=== PATIENT | female | born 1980 | race American Indian/Alaskan Native ===

== ENCOUNTER 2021-02-09 09:32 | Outpatient (CLI) | payer BC ==
--- NOTE | 2021-02-11 08:37 | Mammography Report ---
DIGITAL SCREENING MAMMOGRAM WITH TOMOSYNTHESIS WITH CAD, 02/09/2021 CLINICAL INFORMATION / INDICATION: Screening TECHNIQUE: Digital bilateral 2D and 3D mammography with tomosynthesis was obtained in the craniocaud al and mediolateral oblique projections. Computer-Aided Detection (CAD) analysis was used for interp retation of this study. COMPARISON: None available FINDINGS: Breast Density: The breasts are heterogeneously dense, which may obscure small masses. No dominant mass, suspicious calcifications, or architectural distortion in the left breast. In the posterior depth of the upper outer left breast at 2:00, approximately 8 cm from the nipple, an ill-defined 6 mm possible asymmetric focal density is seen. IMPRESSION: Possible asymmetric focal density on the left Follow up recommendation: Left spot compression views and ultrasound if needed BI-RADS Category 0: Incomplete. Needs additional imaging evaluation and/or prior mammograms for julian barlowon. A "normal" or negative report should not discourage follow up or biopsy of a clinically significant f inding. A written summary of these findings will be mailed to the patient. The patient will be entered into a mammography reporting system which will generate a reminder letter for the patient's next appointmen t at the appropriate interval. The [employer] recommends yearly mammograms starting at age 40 and continuing as l deniz as a woman is in good health. Breast MRI is recommended for women with an approximate 20-25% or greater lifetime risk of breast cancer, including women with a strong family history of breast or ova almaz cancer or who have been treated for Hodgkin's disease. Signer Name: Parth Madrid MD Signed: 02/11/2021 8:32 AM Workstation Name: [id number]
== END 2021-02-09 09:33 | disposition home or self-care (01) ==
LOC: SPVWC 09:32
PROVIDERS: ATTEND Surgery
DX: Z12.31 Encounter for screening mammogram for malignant neoplasm of breast (principal)
CPT/HCPCS: 77063; 77067

== ENCOUNTER 2021-03-16 08:13 | Outpatient (CLI) | payer BC ==
--- NOTE | 2021-03-16 16:39 | Mammography Report ---
LEFT DIGITAL DIAGNOSTIC MAMMOGRAM WITH CAD , 03/16/2021 LEFT LIMITED BREAST ULTRASOUND CLINICAL INFORMATION / INDICATION: ABN MAMMO TECHNIQUE: Digital left mammographic imaging was performed. Spot compression views were obtained. Graham ited ultrasound was performed. This examination was interpreted with the benefit of Computer-Aided De tection (CAD) analysis. COMPARISON: 02/09/2021 recent screening mammogram. FINDINGS: Breast Density: The breasts are heterogeneously dense, which may obscure small masses. MAMMOGRAPHIC FINDINGS: In the 1-2:00 position of the left breast, posterior depth, a persistent 7 mm round nodular density is seen, primarily on the MLO view. Ultrasound will be performed for further ev aluation. ULTRASOUND FINDINGS: Targeted ultrasound evaluation was performed of the area of interest. A 5 mm o loulou simple cyst is identified at 2:00, 8 cm from nipple. It is unclear if this correlates with mammog raphic abnormality. There is certainly no solid mass or suspicious area of shadowing noted. IMPRESSION: Probably benign finding. Recommend 6 month follow-up left 3D mammogram to assess stabili ty of highly likely benign nodular density. Follow up recommendation: Short term follow up in 6 months. BI-RADS Category 3: Probably Benign. Followup in 6 months. A "normal" or negative report should not discourage follow up or biopsy of a clinically significant f inding. A written summary of these findings will be mailed to the patient. The patient will be entered into a mammography reporting system which will generate a reminder letter for the patient's next appointmen t at the appropriate interval. According to the [employer], yearly mammograms are recommended starting at age 40 and continuing as long as a woman is in good health. Breast MRI is recommended for women with an ketty roximately 20-25% or greater lifetime risk of breast cancer, including women with a strong family his tory of breast or ovarian cancer and women who have been treated for Hodgkin's disease. Signer Name: Delia Acevedo MD Signed: 03/16/2021 4:35 PM Workstation Name: [id number]
== END 2021-03-16 08:14 | disposition home or self-care (01) ==
LOC: SPVWC 08:13
PROVIDERS: ATTEND Surgery
DX: N60.02 Solitary cyst of left breast (principal)

== ENCOUNTER 2021-04-19 15:27 | Outpatient (CLI) | payer BC ==
--- NOTE | 2021-04-26 09:00 | Magnetic Resonance Report ---
BILATERAL BREAST MRI WITH AND WITHOUT CONTRAST CLINICAL INFORMATION/INDICATION: The patient has a history of abnormal left mammogram which demonstra faye benign-appearing nodularity and left breast cyst. The patient also reports left breast pain. She also reports a family history of breast cancer. TECHNICAL: Axial T1 and T2-weighted fat sat images were obtained precontrast. After intravenous admin istration of 13 mL Clariscan, serial axial T1 weighted images with fat saturation were obtained. 3-D MIP projections, kinetic analysis and subtraction imaging was utilized to evaluate. A dedicated 8-clif nnel breast coil was used for image acquisition. COMPARISON: Bilateral screening mammogram, 02/09/2021. Left diagnostic mammogram and ultrasound, 2020 FINDINGS: There is mild to moderate background enhancement within both breasts. Right breast: No dominant mass or suspicious area of enhancement is seen in the right breast. Left breast: No dominant mass or suspicious area of enhancement is seen in the left breast. Specifica lly, no MRI abnormality is seen to correspond to the minimal benign-appearing nodularity at the 2:00 position recently identified on the patient's screening and diagnostic mammograms. Axilla: No pathologically enlarged axillary lymph nodes are identified. Additional findings: Limited imaging of the thorax and upper abdomen demonstrates no focal abnormalit y. IMPRESSION: 1. No MRI abnormality of either breast. 2. Findings seen on the recent diagnostic mammogram and ultrasound have the appearance of dense fibro glandular tissue and fibrocystic change. Therefore, a six-month follow-up left diagnostic mammogram w ith tomosynthesis and ultrasound is recommended to confirm this impression. Follow up recommendation: Short term follow up in 6 months. BI-RADS Category 3: Probably Benign. Followup in 6 months. Signer Name: Haritha Tracey MD Signed: 04/26/2021 8:55 AM Workstation Name: [id number]
== END 2021-04-19 15:28 | disposition home or self-care (01) ==
LOC: SPVIMAG 15:27
PROVIDERS: ATTEND Surgery
DX: Z12.31 Encounter for screening mammogram for malignant neoplasm of breast (principal); Z80.3 Family history of malignant neoplasm of breast
CPT/HCPCS: A9575; C8908; 77049

== ENCOUNTER 2021-05-03 15:24 | Outpatient (CLI) | payer BC ==
--- NOTE | 2021-05-03 20:06 | Magnetic Resonance Report ---
MR brain wo con INDICATION / CLINICAL INFORMATION: 41 years Female; RIGHT TEMPORAL HEADACHE R51.9. TECHNIQUE: Multiplanar, multisequence MR images of the brain were obtained. COMPARISON: None available. FINDINGS: BRAIN / INTRACRANIAL CONTENTS: No acute hemorrhage, mass effect, midline shift, hydrocephalus, or acu te, large territorial infarct. No chronic infarct or atrophy. No significant white matter abnormality . CRANIOCERVICAL JUNCTION: No significant abnormality. VASCULAR FLOW-VOIDS: No significant abnormality. ORBITS: No significant abnormality of visualized orbits. SINUSES / MASTOIDS: No significant abnormality in the visualized paranasal sinuses or mastoid air anthony ls. ADDITIONAL FINDINGS: None. IMPRESSION: 1. No focal mass, hemorrhage, hydrocephalus, or acute ischemia. Signer Name: Duong Cole MD, III Signed: 05/03/2021 8:02 PM Workstation Name: [id number]
== END 2021-05-03 15:25 | disposition home or self-care (01) ==
LOC: SPVIMAG 15:24
DX: R51.9 Headache, unspecified (principal)
CPT/HCPCS: 70551